=== PATIENT | male | born 1960 | race Caucasian/White ===

== ENCOUNTER → 2017-05-05 | Outpatient (CLI) | payer OTHER ==
[2017-01-28 13:23] VITALS: BP 130/69
--- NOTE | 2017-05-05 16:01 | RAD ---
Examination: X-rays of the right elbow. Clinical history: Fall, contusion of forearm, right elbow pain. Technique: Three views of the right elbow were obtained. Comparison: None available. Findings: No acute fracture, dislocation, or destructive bony lesion is noted. Bony spurring is seen at the lateral epicondyle of the distal humerus and at the olecranon of the pr oximal ulna, consistent with enthesopathy. No joint effusion or soft tissue abnormality is noted. Impression: 1. No acute fracture or dislocation. Reported By:
== END ==
LOC: RAD 15:28
PROVIDERS: ATTEND Obstetrics & Gynecology Obstetrics
DX: S50.11XA Contusion of right forearm, initial encounter (principal); X58.XXXA Exposure to other specified factors, initial encounter
CPT/HCPCS: 73070